=== PATIENT | male | born 1940 | race Caucasian/White ===

== ENCOUNTER 2017-09-11 03:17 | Inpatient (IN) | payer OTHER ==
[~2017-09-11] VITALS: Ht 168 cm; Wt 61.2 kg
[2017-09-11] VITALS (53 sets, daily range): BP systolic 86–142; BP diastolic 28–78
--- NOTE | ~2017-09-11 | PR ---
[place], [place] PROGRESS NOTE NAME: NATO FORD UNIT #: [id number] ROOM: 401 DOCTOR: LORELEI THURSTON MD,NIDHI BIRTHDATE: [birth year] DOS: 09/16/2017 SUBJECTIVE: He has been noted comfortable. The chest tube was removed yesterday successfully without difficulty. Coughing has been noted with gradual reduction in the frequency and intensity. There was no sputum expectoration. The patient denies symptoms of chest pain or hemoptysis. OBJECTIVE: VITAL SIGNS: Normal temperature, respiratory rate 20, heart rate 75, blood pressure 90-75, pulse ox saturation with 3 liters nasal cannula 94% saturation. HEENT: No acute change. NECK: Supple. CARDIOVASCULAR: S1, S2 audible. LUNGS: Mild to moderate decreased breath sounds noted on the right side. The left lung was noted clear of any wheezing or crackles. ABDOMEN: Soft, nontender. EXTREMITIES: The patient noted without any acute edema. LABORATORY DATA: Chest x-ray of the patient does not show any evidence of pneumothorax. On the left side, the chest tube was already removed. Emphysematous changes noted improvement in aeration, ____ right side with some pleural thickening still noted. PLAN OF MANAGEMENT: Continuation of the bronchodilators, oxygen supplementation and the medical management of COPD as well. The patient has been showing progressive improvement and resolution of acute symptoms. Antibiotic for the patient at this time will be changed to lower spectrum antibiotic based on the recent culture results of the sputum. The vancomycin and Zosyn will be discontinued. Levaquin will be continued with primary antibiotics. Possible discharge home consideration in the morning as well. Assessment for home oxygen might be needed as well. NIDHI MOSELEY MD CM:PNTRANS [id number] NIDHI THURSTON MD 09/17/17814 interface
--- NOTE | ~2017-09-11 | PR ---
[place], [place] PROGRESS NOTE NAME: NATO FORD UNIT #: [id number] ROOM: 401 DOCTOR: LORELEI THURSTON MD,NIDHI BIRTHDATE: [birth year] DOS: 09/15/2017 SUBJECTIVE: The patient noted comfortable at this time, resting on the bed. Coughing has been noted decreased as described by the patient in the last 24 hours. He denies symptoms of chest pain. The patient has a chest tube remains clamped without any respiratory difficulty. He has not been noted and symptoms of nausea, vomiting, diarrhea or any abdominal pain. The patient denies any symptoms of hemoptysis or any chest pain at this time. His appetite was noted fair. Denies symptoms of headache or diplopia. Remaining systems were reviewed. They were noted all negative. OBJECTIVE: VITAL SIGNS: Normal temperature, respiratory rate 18, heart rate 73, blood pressure 130/57-126/74. The pulse oxygen saturation on 2 liters nasal cannula 100% saturation. HEENT: Examination shows head was atraumatic. Eyes nonicterus. NECK: Supple. CARDIOVASCULAR: S1, S2 is audible. LUNGS: The patient was noted without any wheezing or crackles at the present time. Breath sounds still noted decreased on the right chest auscultation. The left lung was clear. ABDOMEN: Soft, nontender. Bowel sounds present. EXTREMITIES: Noted without any acute edema. MUSCULOSKELETAL: Without any acute deformities. LABORATORY DATA: Urine for strep antigen for the patient and the legionella antigen both noted negative. CBC this morning, hemoglobin 8.5 and 27.7, WBC count normal, platelet count were normal. The chest x-ray of the patient that was done this morning, was reviewed shows chest tube remains in place. Apparent reduction and improvement in the aeration of the right infiltrates were noted. IMPRESSION: Pneumothorax. The patient has been noted with minimal pneumothorax after a couple of days in the left upper lobe. The chest tube has been removed today for the patient with the use of the Vaseline gauze applied to tight dressing for patient at the site. Continue the antibiotics, bronchodilators, and oxygen supplementation. Another chest x-ray to be repeated PA lateral view in the morning. Gradual reduction of the Solu-Medrol dose will be done. Other supportive therapy, plan of management and care plan. Monitor respiratory status otherwise closely. Usual care. [place], [place] PROGRESS NOTE NAME: NATO FORD UNIT #: [id number] ROOM: 401 DOCTOR: LORELEI THURSTON MD,NIDHI BIRTHDATE: [birth year] NIDHI MOSELEY MD CM:PNTRANS [id number] NIDHI THURSTON MD 09/16/172205 interface
--- NOTE | ~2017-09-11 | PR ---
[place], [place] PROGRESS NOTE NAME: NATO FORD UNIT #: [id number] ROOM: 401 DOCTOR: ELIO SAINZ MD BIRTHDATE: [birth year] DOS: SUBJECTIVE: The patient has been admitted to the hospital with spontaneous pneumothorax, has chest pain ____ in by Dr. Tracey. The patient is progressing quite satisfactory, but slowly. He is not in any distress. He is stable. OBJECTIVE: VITAL SIGNS: His blood pressure is 127/70, pulse oximetry is 98%, pulse is 87, his tongue is not coated. He is taking enough fluid. HEART: Regular, no murmur. LUNGS: Having some decreased breath sound, but there are no crepitations. ABDOMEN: Soft. EXTREMITIES: There is no swelling of legs. No tenderness of the calf. His prealbumin shows having hypoalbuminemia. Sputum culture and sensitivity grew normal speedy. His blood pressure is 128/73 and sepsis is under control. His tachycardia is under control, tachypnea is under control. ELIO SAINZ MD CM:PNTRANS [id number] ELIO SAINZ MD 09/14/17 0412 interface
--- NOTE | ~2017-09-11 | PR ---
[place], [place] PROGRESS NOTE NAME: NATO FORD UNIT #: [id number] ROOM: 401 DOCTOR: LORELEI THURSTON MD,NIDHI BIRTHDATE: [birth year] DOS: 09/13/2017 SUBJECTIVE: The patient is noted quite comfortable at this time, resting on the bed for this patient. Chest tube remains in place. The patient placed to suction on the left side. The coughing has been noted chest congestion without any sputum expectoration, which was significant. Denies symptoms of hemoptysis or chest pain. The patient denies symptoms of active wheezing. His appetite was noted fair. Denies any symptoms of abdominal pain, nausea, vomiting. Denies any symptoms of dysuria, suprapubic pain or musculoskeletal pain, headache or dizziness. Remaining systems were reviewed. They were noted all negative. PHYSICAL EXAMINATION: VITAL SIGNS: Normal temperature, respiratory rate 18, heart rate 69, blood pressure 120/65, pulse oxygen saturation on 2 liters nasal cannula 100% saturation recorded. HEENT: No acute change. NECK: Supple. CARDIOVASCULAR: S1, S2 is audible. LUNGS: Noted with expiratory wheezing in the lungs noted bilaterally, greater on the right than the left side. There were no crackles. ABDOMEN: Soft, nontender. EXTREMITIES: Without any acute edema. MUSCULOSKELETAL: Without any acute deformities except chronic loss of muscle mass. SKIN: No lesions or rashes. CENTRAL NERVOUS SYSTEM: Intact. LABORATORY DATA: Prealbumin noted as 14.0. The blood culture showed no bacterial growth for this patient on 09/11/2017. The chest x-ray was noted with a lung remained expanded on the left side. Chest tube remains in appropriate position in the left hemithorax. Right lung was noted improvement in the aeration, but still noted with significant information rather abnormalities in the lung with infiltration, pleural thickening and others. IMPRESSION: 1. The patient was noted spontaneous pneumothorax, left side, chest tube remains in place without any evidence of air leak. 2. The patient with acute pneumonia. 3. Rule out malignancy right hemithorax. 4. Past history of prostate cancer. 5. Hrpjtbrf-im-yzletj protein calorie malnutrition as well. 6. Overall severe debility. 7. Acute exacerbation of chronic obstructive pulmonary disease. PLAN OF THERAPY: The patient would be transferred to the telemetry floor at this time. Dose of Solu-Medrol has been decreased to 60 mg Solu-Medrol b.i.d. dosing. Other supportive plan of therapy and care plan. Additional treatment changes, continue be made based on progression of the illness. For the [place], [place] PROGRESS NOTE NAME: NATO FORD UNIT #: [id number] ROOM: 401 DOCTOR: LORELEI THURSTON MD,NIDHI BIRTHDATE: [birth year] pneumothorax. Chest tube has been clamped for patient at the bedside today, that will remain clamped for the next 24 hours. Chest x-ray will be done for this patient tomorrow morning to reassess. If the patient developed any evidence of hypotension, respiratory distress, or hypoxia. The patient's chest tube clamped to be open up to the Pleur-evac suction. The information has been discussed with the nursing staff. Other supportive therapy, plan of management and care plan. Additional treatment changes, continue to be made based on the progression of the illness. Optimize the nutritional status for the patient for the Protein calorie malnutrition. NIDHI MOSELEY MD CM:PNTRANS [phone] NIDHI THURSTON MD 09/13/172031 interface
--- NOTE | ~2017-09-11 | CON ---
[place], [place] REPORT OF CONSULTATION NAME: NATO FORD UNIT #: [id number] ROOM: [facility] DOCTOR: NIDHI FERRIS MD BIRTHDATE: [birth year] DOS: 09/11/2017 PULMONARY CONSULTATION, EVALUATION AND MANAGEMENT REASON FOR CONSULTATION: Assess the patient's current pneumothorax, acute pneumonia, and other respiratory symptoms. HISTORY OF PRESENT ILLNESS: This is a 77-year-old white male who presented to the hospital this morning as the patient has been noted with significant shortness of breath, which has been noted progressively worsening. The patient has been noted with symptoms of coughing, chest congestion recently as well, which was also described worsening. He has been expectorating "dark sputum." There was no hemoptysis reported. The patient also noted with symptoms of pain, which is described in the chest. The patient has not been known with any symptoms reported for wheezing. The patient has a chest x-ray, which was obtained on this patient for assessment of current symptoms. The patient noted with acute large pneumothorax in the left side. The patient has a chest tube inserted successfully by the ER physician resulting in reexpansion of the lung. The patient was seen during his stay in the Emergency Room. REVIEW OF SYSTEMS: CONSTITUTIONAL SYMPTOMS: Fatigue and tiredness reported without any fever or chills. EYES: Denies any burning, redness, tenderness, or diplopia. EARS, NOSE, AND THROAT SYMPTOMS: Denies sore throat, hoarseness, or otalgia. The patient noted mild senile hearing loss. CARDIOVASCULAR: Denies angina pain, edema, or pain of lower extremities. GASTROINTESTINAL: No dysphagia, nausea, vomiting, diarrhea, abdominal pain, hematemesis, melena, hematochezia, or dysphagia. GENITOURINARY: No dysuria, suprapubic pain, or hematuria. MUSCULOSKELETAL: No acute joint pain, redness, or tenderness described. CENTRAL NERVOUS SYSTEM: General weakness. Denies symptoms of dizziness, headache, syncopal episode, or seizures. Remaining systems were reviewed of the patient, they were noted all negative. PAST MEDICAL HISTORY: 1. Known with history of chronic obstructive pulmonary disease. 2. Prostate cancer, treated with brachytherapy. 3. Essential hypertension. 4. Skin cancer. PAST SURGICAL HISTORY: No major surgery reported. SOCIAL HISTORY: The patient reported , has 2 children. He has been noted with heavy tobacco use, started at the age of 13-14 years old up to 3 packs of cigarettes a day. Complete tobacco cessation was described in 1998. FAMILY HISTORY: Unknown by the patient. [place], [place] REPORT OF CONSULTATION NAME: NATO FORD UNIT #: [id number] ROOM: [facility] DOCTOR: LORELEI THURSTON MD,NIDHI BIRTHDATE: [birth year] MEDICATIONS: Home medications list reported as use of Norvasc, Lipitor, azathioprine, Advair, lisinopril, hydrochlorothiazide, and metoprolol succinate. The reason for use of azathioprine for the patient was unknown. DRUG ALLERGIES: No known drug allergies. PHYSICAL EXAMINATION: GENERAL: This is a 77-year-old male patient who has been currently resting comfortably on the bed in the Emergency Room. VITAL SIGNS: Height of 5 feet 6 inches, weight 131 pounds, BMI 21.6. VITAL SIGNS: Normal temperature to 99 degree Fahrenheit, respiratory rate recorded between 18 and 19, heart rate of 115, sinus tachycardia, 106 beats per minute, still noted, blood pressure of the patient was noted as 121/61-98/69. Pulse oxygen saturation of the patient recorded on 100% nonrebreather mask was 91% saturation. HEENT: Head was atraumatic. Eyes nonicterus. Mild senile hearing loss. NECK: Supple. CARDIOVASCULAR: S1, S2 audible. LUNGS: Noted with moderate general reduction in the breath sounds in the lungs bilaterally. Wheezing was noted in the lungs. ABDOMEN: Soft, nontender, and flat. EXTREMITIES: Without any acute edema. MUSCULOSKELETAL: Shows loss of muscle mass. CENTRAL NERVOUS SYSTEM: No gross focal neurologic deficit. Cranial nerves 2-12 intact. LABORATORY DATA: Lactic acid 2.7 on admission. PT/PTT noted normal fir the patient this morning. CMP this morning, BUN 58, creatinine 1.77, glucose 154, potassium 6.0. Troponin 0.27. CBC of the patient this morning, WBC count ____, hemoglobin 9.9, hematocrit 31.3, platelet count 268,000. The troponin for the patient, second set 0.261. IMAGING STUDIES: Review of the radiology data for this The chest x-ray of the patient that was done on admission was reviewed, shows evidence of large left-sided pneumothorax with blunting of the right costophrenic angle. Changes of severe COPD were noted. The chest x-ray of the patient that was done after insertion of the chest tube was noted with resolution of the pneumothorax with small remaining atelectasis. The infiltrate was noted more pronounced for this patient in the right lung at this time. CT scan of the chest of the patient was also reviewed and shows evidence of a mass lesion noted as 4.4 x 1.5 cm in the left upper lung, pleural thickening noted area 4 x 8 cm in the right upper lobe as well. Another nodule for the patient was noted with some pleural thickening for the patient, which appeared to be nodular in the right middle lobe. Pneumothorax was visible on the chest x-ray. Evidence of granulomas was also noted in the lungs. IMPRESSION: 1. The patient will be currently admitted to the hospital with spontaneous pneumothorax with severe advanced emphysema, which was also visible on the CT scan of the chest with the reinsertion of chest tube for this patient does not [place], [place] REPORT OF CONSULTATION NAME: NATO FORD UNIT #: [id number] ROOM: [facility] DOCTOR: LORELEI THURSTON [facility] BIRTHDATE: [birth year] show any air leak, good reexpansion of the lung noted. 2. Severe acute hypoxic respiratory failure as a result of current acute pneumothorax. 3. Possibility of multifocal pneumonia will be considered, rule out malignancy in the patient with current pleural thickening as well. 4. Past history of cancer of the prostate, known as well, treated with brachytherapy. 5. The patient has anemia of chronic disease as well with a low-grade leukocytosis. 6. The patient with abnormal troponin, rule out acute myocardial infarction. 7. Mild hypotension noted, which is in remission, most likely multifactorial. 8. The patient with a history of past tobacco use. 9. The patient with acute exacerbation of chronic obstructive pulmonary disease was also noted. 10. The patient with acute sepsis with acute end-organ injury with acute respiratory failure as well as acute kidney injury would be considered. PLAN OF MANAGEMENT: The patient will be transferred to the Intensive Care Unit for further medical management. Chest tube will be continued for suction. Continue corticosteroids, bronchodilators, oxygen supplementation. Treat the patient at this time for the acute pneumonia management and also assess the patient for any additional intervention that needs to be done as an outpatient. Chest x-ray portable will be obtained in the morning. Monitor the hemodynamics. Cardiology consultation may be needed. The patient was also noted with acute change with elevation of creatinine, most likely related to acute sepsis because of the acute pneumonia would be considered very likely to be monitored. DVT prophylaxis. Other supportive therapy, plan and management. If the patient does develop additional hypotension, the patient will require intravenous fluid volume initial resuscitation followed by the use of vasopressors if necessary to maintain mean arterial pressure of 65 or greater. The assessment and management of the patient was also discussed with the patient's son who was present at bedside with the patient. Total time spent in the patient's pulmonary critical care evaluation and management today is 32 minutes. NIDHI MOSELEY MD CM:CONSTR:REPORT OF CONSULTATION 1631 09/12/17 0507 interface
--- NOTE | ~2017-09-11 | PR ---
[place], [place] PROGRESS NOTE NAME: NATO FORD UNIT #: [id number] ROOM: [facility] DOCTOR: LORELEI THURSTON MD,NIDHI BIRTHDATE: [birth year] DOS: 09/12/2017 SUBJECTIVE: The patient was admitted to the Intensive Care Unit yesterday. He has been noted with reduction in the respiratory symptom. Coughing has been noted moderate without any sputum expectoration. He has a chest tube remains in place in left hemithorax. Denies any symptoms of hemoptysis. He had not been noted any edema or pain of lower extremity. Appetite was noted fair. Chest tube was continued ____ the suction. He denies symptoms of nausea, vomiting or diarrhea. Remaining systems were reviewed of the patient, they were noted all negative. OBJECTIVE: VITAL SIGNS: Show normal temperature, respiratory rate 28-14, heart rate of 99-86, blood pressure 123/74-133/76. The pulse oxygen saturation of the patient 2 liters nasal cannula 98% saturation recorded. HEENT: Examination shows head was atraumatic. Eyes nonicterus. NECK: Supple. CARDIOVASCULAR: S1, S2 is audible. LUNGS: Noted generally decreased breath sounds of the patient in the lungs noted bilaterally. Scattered expiratory wheezing, no crackles. ABDOMEN: Soft, nontender, flat. EXTREMITIES: Without any acute edema. MUSCULOSKELETAL: No deformities. SKIN: Noted without any lesions or rashes. LABORATORY DATA: The chest x-ray of the patient that was done this morning for the patient was reviewed, shows left lung remains fully expanded on the left side. Hyperinflation of the lung was noted. Evidence of pleural thickening of the patient and multiple abnormalities were noted on the right side. The film was also noted with poorly positioned for this patient and rotated mostly towards the right, which is exaggerating the abnormal finding on the right side as well. The culture of the sputum was pending. Gram stain noted suboptimal specimen of the lower airways. CBC today, WBC count 11.6, hemoglobin 8.3, hematocrit 26.3, platelet count 185,000 with 100% neutrophils. CMP of the patient that was done this morning, BUN 47, creatinine 1.59, glucose 124. Potassium was 5.2. IMPRESSION: 1. The patient who has been currently admitted to the hospital was noted with acute spontaneous pneumothorax with acute hypoxic respiratory failure. 2. Resolving acute changes. 3. Multilobar pneumonia. 4. Rule out malignancy in the right hemithorax as well. 5. Past history of prostate cancer. 6. Overall severe debility of the patient with apparent protein calorie malnutrition. PLAN OF MANAGEMENT: The patient's chest tube does not show any air leak at this time, will be continued with suction for the next 24 hours. Once reviewing the [place], [place] PROGRESS NOTE NAME: NATO FORD UNIT #: [id number] ROOM: [facility] DOCTOR: LORELEI THURSTON MD,NIDHI BIRTHDATE: [birth year] chest x-ray tomorrow for this patient, the clamping of the chest tube will be done. In the meantime, continue antibiotics. Bronchodilators. Obtain the prealbumin level as well for this patient to assess the nutritional status with nutrition supplements could be given. Titrate oxygen supplementation to maintain pulse oxygen saturation of 92% or greater. Usual care. Other supportive therapy, plan of management and care plan. Additional treatment changes will be made for the patient based on the progression of the illness. NIDHI MOSELEY MD CM:CORA [phone] NIDHI THURSTON MD 09/13/17 0151 interface
--- NOTE | ~2017-09-11 | PR ---
[place], [place] PROGRESS NOTE NAME: NATO FORD UNIT #: [id number] ROOM: 401 DOCTOR: NIDHI FERRIS MD BIRTHDATE: [birth year] DOS: 09/17/2017 PULMONARY PROGRESS NOTE SUBJECTIVE: The patient noted comfortable at this time, resting in the bed. Coughing continues to resolve, progressive. Symptoms of chest pain, shortness breath was improving. The patient denies symptoms of hemoptysis. OBJECTIVE: VITAL SIGNS: Recorded normal temperature, respiratory rate 20, heart rate 84, blood pressure of 132/60. Pulse oxygen saturation on 2 liters nasal cannula 100% saturation recorded. HEENT: Examination shows head was atraumatic. Eyes nonicterus. NECK: Supple. CARDIOVASCULAR: S1, S2 is audible. LUNGS: Noted without any wheezing or crackles at the present time. ABDOMEN: Soft, nontender. EXTREMITIES: Without any acute edema. LABORATORY DATA: CBC: Hemoglobin 8.9. Normal WBC count and platelet count. The BMP, BUN 29, creatinine normal. IMPRESSION: 1. Resolution of spontaneous pneumothorax, removed chest tube a couple of days ago successfully without any difficulty. 2. The patient with improved acute hypercapnic hypoxic respiratory failure, exacerbation of chronic obstructive pulmonary disease, markedly. 3. Acute pneumonia. 4. Pleural thickening, rule out any pleural based lung masses as well. PLAN OF MANAGEMENT: Continuation of the current therapy at this time. Discharge planning could be started for possible discharge home today. Follow up to be established as an outpatient, exclude any malignancy in the right hemithorax. [place], [place] PROGRESS NOTE NAME: NATO FORD UNIT #: [id number] ROOM: 401 DOCTOR: NIDHI FERRIS MD BIRTHDATE: [birth year] NIDHI MOSELEY MD CM:PNTRANS [phone] NIDHI THURSTNO MD 09/18/17 0340 interface
--- NOTE | ~2017-09-11 | PR ---
[place], [place] PROGRESS NOTE NAME: NATO FORD UNIT #: [id number] ROOM: 401 DOCTOR: NIDHI FERRIS MD BIRTHDATE: [birth year] DOS: 09/14/2017 SUBJECTIVE: Chest tube remains clamped for the last 24 hours without any respiratory problem. The patient currently staying in the telemetry floor after transfer from Intensive Care Unit. Coughing has been noted moderately without any sputum expectoration. Denies symptoms of abdominal pain, nausea, vomiting, and diarrhea. OBJECTIVE: VITAL SIGNS: For the patient which has been recorded shows normal temperature, respiratory rate 20, heart rate 80, and blood pressure 114/77-110/77. Pulse oxygen saturation on 2 liters nasal cannula 95% saturation. HEENT: No acute change. NECK: Supple. CARDIOVASCULAR: S1 and S2 is audible. LUNGS: The patient was noted without any crackle, rhonchi or wheezing on the left side. Decreased breath sounds in the right chest. ABDOMEN: Soft and nontender. EXTREMITIES: Without any acute edema. RADIOLOGIC DATA: Chest x-ray of the patient that was done one-view reviewed personally for the patient from the PACS images shows evidence of somewhat right lung volume loss was noted with pleural thickening and superimposed pulmonary infiltration. Left lung remains fully expanded and chest tube in place. IMPRESSION: 1. The patient without any evidence of air leak with spontaneous pneumothorax, Chest tube has been clamped for 24 hours without any adverse findings. 2. Acute pneumonia. 3. Rule out malignancy in the right hemithorax. PLAN OF MANAGEMENT: Continue chest tube clamping for another 24 hours. The chest tube might be removed tomorrow morning after assessment of chest x-ray. Continue antibiotic, other therapy, plan and management previously. Usual care. Supportive plan of care and treatments. [place], [place] PROGRESS NOTE NAME: NATO FORD UNIT #: [id number] ROOM: 401 DOCTOR: NIDHI FERRIS MD BIRTHDATE: [birth year] NIDHI MOSELEY MD CM:PNTRANS [id number] NIDHI THURSTON MD 09/15/17 0719 interface
--- NOTE | ~2017-09-11 | PR ---
[place], [place] PROGRESS NOTE NAME: NATO FORD UNIT #: [id number] ROOM: 401 DOCTOR: ELIO SAINZ MD BIRTHDATE: [birth year] DOS: 09/14/2017 SUBJECTIVE: The patient who has been admitted to hospital with the spontaneous pneumothorax and had chest tube put in and is progressively getting better. He denies any chest pain, no difficulty in breathing, no nausea, no vomiting, no fever or chills. He is eating satisfactorily and the chest tube is working quite satisfactorily. His vancomycin level 11.9. The patient's ASA MRSA is positive and his blood culture is negative. OBJECTIVE: VITAL SIGNS: Blood pressure 110/77, pulse 82, respirations 20, temperature 97.1. CHEST: Having occasional rhonchi and no crepitation. Decreased breath sounds on the left side. ABDOMEN: Soft. Liver and spleen not palpated. No tenderness. EXTREMITIES: No edema of leg. ELIO SAINZ MD CM:PNTRANS [id number] ELIO SAINZ MD 09/16/17 1327 interface
--- NOTE | ~2017-09-11 | PR ---
[place], [place] PROGRESS NOTE NAME: NATO FORD UNIT #: [id number] ROOM: 401 DOCTOR: GERMAINE DAWN MD BIRTHDATE: [birth year] DOS: 09/15/2017 SUBJECTIVE: The patient was seen at his bedside with family in attendance today 09/15/2017. He is a 77-year-old man who presented to the hospital on this occasion with worsening dyspnea. He was found to have a tension pneumothorax which required tube thoracostomy. The chest tube was removed today. The patient is breathing easily and states that he is about at his baseline. On admission, he did have elevated troponins. Troponin levels were all in the 0.25-0.27 range and were elevated most likely due to demand ischemia rather than an acute coronary event. The patient denies any history of heart disease or chest pain at this time. PHYSICAL EXAMINATION: VITAL SIGNS: Today, his pulse is 85 and regular, blood pressure is 122/58. He is afebrile. He weighs 61.2 kg and has a body mass index of 21.7. NECK: Supple. He has no jugular distention. Carotids are full. LUNGS: Respirations are unlabored at rest. He has markedly decreased breath sounds bilaterally. HEART: Has a regular rhythm with an S4 gallop, but no S3 or murmur. ABDOMEN: Soft. EXTREMITIES: Showed no edema. He did have an echocardiogram done on this admission, which showed normal left ventricular size, systolic function and wall motion with an ejection fraction of 65%. No significant valve abnormalities are seen. Right ventricular systolic pressure 60 mmHg consistent with his lung disease. IMPRESSION: 1. Acute respiratory failure due to pneumothorax and pneumonia, improving. 2. Chronic obstructive pulmonary disease. 3. Elevated troponins due to type 2 myocardial injury. 4. Normal left ventricular size and function. The patient denies any history of heart disease. 5. Moderate tricuspid insufficiency with Doppler evidence for pulmonary hypertension, likely due to underlying lung disease. 6. Chronic kidney disease stage 3 with acute kidney injury due to dehydration. 7. The patient currently is euvolemic. 8. History of abdominal aortic aneurysm repaired with a stent graft. PLAN: No other cardiac workup is planned at this time. We will sign off, but remain available to assist in his care should we be of use. I thank Dr. Hart for asking our advice regarding his care. [place], [place] PROGRESS NOTE NAME: NATO FORD UNIT #: [id number] ROOM: 401 DOCTOR: GERMAINE DAWN MD BIRTHDATE: [birth year] GERMAINE DAWN MD CM:PNTRANS [phone] GERMAINE DAWN MD 09/15/172032 interface
--- NOTE | ~2017-09-11 | PR ---
[place], [place] PROGRESS NOTE NAME: NATO FORD UNIT #: [id number] ROOM: 401 DOCTOR: CHACHA PARKER MD BIRTHDATE: [birth year] DOS: 09/15/2017 SUBJECTIVE: The patient is doing well. He has a pneumothorax and pneumonia and his Streptococcus pneumoniae and legionella antigen have been negative. The patient does not have chest tube anymore. It was taken out in the morning by Dr. Tracey. His chest x-ray was done today, which showed a stable left thoracotomy tube in the morning. No evidence of residual pneumothorax. The patient is doing well. He is much better. No apparent shortness of breath or chest pain. No nausea or vomiting. OBJECTIVE: VITAL SIGNS: Blood pressure 130/57, pulse is 73, respiratory 18, temperature 98 degrees Fahrenheit. CHEST: Clinically decreased breath sounds bilaterally. HEART: S1 and S2, regular rate and no murmur, gallop or rub. ABDOMEN: Soft, nontender. EXTREMITIES: No edema. LABORATORY DATA: Today, WBC count is 6.7, hemoglobin is 8.5, MCV 109.1 and platelets 194. He has atypical lymphocytes seen. The patient does have left shift. BUN is 35, creatinine 1.29. EGFR is 54. ASSESSMENT: At this time: 1. Acute community-acquired pneumonia. 2. Pneumothorax, status post chest tube placement, which has been removed now. 3. Rule out malignancy as noted in the right hemithorax as per Dr. Tracey. PLAN OF CARE: 1. We will continue antibiotics. 2. Chest x-ray in the morning. 3. Anemia workup, we will check total iron studies. We will follow the patient. 4. For hypertension, we will continue lisinopril and hydrochlorothiazide and continue Zosyn, Levaquin and vancomycin at this point. We will follow the patient in the morning. [place], [place] PROGRESS NOTE NAME: NATO FORD UNIT #: [id number] ROOM: 401 DOCTOR: CHACHA PARKER MD BIRTHDATE: [birth year] CHACHA PARKER MD CM:PNTRANS [id number] CHACHA PARKER MD 09/15/17 1255 interface
[~2017-09-11 03:17] MED LIST: AMLODIPINE5 MG PO; ASPIRIN ADULT L81 M1 PO; AZATHIOPRINE50 MG PO; COMBIVENT1 ARO INH; FOLIC ACID0.4 MG PO; LIPITOR20 MG PO; LISINOPRIL40 MG PO; MAPAP ARTHRITI650 MG PO; TOPROL XL25 MG PO
[2017-09-11 03:44] LABS: HEMATOCRIT 31.3 % (42.0-52.0); HEMOGLOBIN 9.9 g/dl (14.0-18.0); MEAN CELL VOLUME 106.5 fl (80.0-94.0); MEAN CORPUSCULAR HGB 33.7 pg (27.0-31.0); MEAN CORPUSCULAR HGB CONC 31.6 g/dl (33.0-37.0); MEAN PLATELET VOLUME 10.3 fl (9.6-12.3); NUCLEATED RED BLOOD CELL 0.1 % (0.0-0.0); PLATELET COUNT AUTOMATED 268 10*3/uL (130-400); RED BLOOD COUNT 2.94 10*6/uL (4.50-5.90); WHITE BLOOD COUNT 22.4 10*3/uL (4.8-10.8)
[2017-09-11 03:56] LABS: ACT PARTIAL THROMBO TIME 28.2 SECONDS (20.8-31.5); INTERNATIONAL NORM RATIO 1.1 (2.0-3.5)
[2017-09-11 04:02] LABS: ALBUMIN 2.8 gm/dl (3.1-4.5); CREATININE 1.77 mg/dL (0.70-1.30); TOTAL PROTEIN 8.8 gm/dL (6.4-8.2)
[2017-09-11 04:04] LABS: TOTAL CELLS COUNTED 100 #CELLS
[2017-09-11 04:05] LABS: PLATELET SUFFICIENCY NORMAL (NORMAL)
[2017-09-11 04:08] LABS: TROPONIN I 0.27 ng/ml (<0.045)
[2017-09-11] MEDS ORDERED: ZESTORETIC 10-1 EACH PO (11:29)
[2017-09-11] MEDS ORDERED: ADVAIR 250/501 EA PO (11:31)
[2017-09-11 14:08] LABS: PHOSPHOROUS 2.9 mg/dL (2.5-4.9)
[2017-09-12] VITALS: BP 124/61
[2017-09-12 04:00] VITALS: BP 125/65
[2017-09-12 06:34] LABS: ALBUMIN 2.1 gm/dl (3.1-4.5); CREATININE 1.59 mg/dL (0.70-1.30); POTASSIUM 5.2 mmol/L (3.5-5.1)
[2017-09-12 06:41] LABS: PHOSPHOROUS 4.2 mg/dL (2.5-4.9); THYROID STIM HORMONE (HS) 0.407 uIU/ml (0.358-4.75); TOTAL PROTEIN 6.6 gm/dL (6.4-8.2)
[2017-09-12 07:22] LABS: HEMATOCRIT 26.3 % (42.0-52.0); HEMOGLOBIN 8.3 g/dl (14.0-18.0); MEAN CELL VOLUME 107.8 fl (80.0-94.0); MEAN CORPUSCULAR HGB CONC 31.6 g/dl (33.0-37.0); MEAN PLATELET VOLUME 11.1 fl (9.6-12.3); NUCLEATED RED BLOOD CELL 0.2 % (0.0-0.0); RED BLOOD COUNT 2.44 10*6/uL (4.50-5.90); RED CELL DISTRI WIDTH 16.4 % (0-14.5); WHITE BLOOD COUNT 11.6 10*3/uL (4.8-10.8)
[2017-09-12 07:23] LABS: PLATELET COUNT AUTOMATED 185 10*3/uL (130-400)
[2017-09-12 08:16] LABS: PLATELET SUFFICIENCY NORMAL (NORMAL); POLYCHROMASIA SLIGHT; TOTAL CELLS COUNTED 100 #CELLS
[2017-09-12 08:49] LABS: VITAMIN D, 25-HYDROXY 21.4 ng/mL (30-100)
[2017-09-12 09:00] VITALS: BP 123/74
[2017-09-12 12:00] VITALS: BP 121/65
[2017-09-12 16:00] VITALS: BP 122/65
[2017-09-12 20:00] VITALS: BP 122/65
[2017-09-13] VITALS: BP 119/72
[2017-09-13 04:00] VITALS: BP 128/73
[2017-09-13 08:00] VITALS: BP 121/74
[2017-09-13 12:00] VITALS: BP 120/65
[2017-09-13 16:53] VITALS: BP 115/65; BP 125/63
[2017-09-13 20:01] VITALS: BP 104/53
[2017-09-14] VITALS: BP 110/77
[2017-09-14 08:00] VITALS: BP 114/77
[2017-09-14 12:00] VITALS: BP 115/51
[2017-09-14 16:00] VITALS: BP 144/80
[2017-09-14 20:00] VITALS: BP 122/61
[2017-09-15] VITALS: BP 105/56
[2017-09-15 07:28] LABS: HEMATOCRIT 27.7 % (42.0-52.0); HEMOGLOBIN 8.5 g/dl (14.0-18.0); MEAN CELL VOLUME 109.1 fl (80.0-94.0); MEAN CORPUSCULAR HGB 33.5 pg (27.0-31.0); MEAN CORPUSCULAR HGB CONC 30.7 g/dl (33.0-37.0); MEAN PLATELET VOLUME 10.4 fl (9.6-12.3); PLATELET COUNT AUTOMATED 194 10*3/uL (130-400); RED BLOOD COUNT 2.54 10*6/uL (4.50-5.90); RED CELL DISTRI WIDTH 15.9 % (0-14.5); WHITE BLOOD COUNT 6.7 10*3/uL (4.8-10.8)
[2017-09-15 07:47] LABS: ATYPICAL LYMPHS 1 % (0-0); PLATELET SUFFICIENCY NORMAL (NORMAL); POLYCHROMASIA SLIGHT; TOTAL CELLS COUNTED 100 #CELLS
[2017-09-15 07:51] LABS: BUN 35 mg/dl (7-24); CREATININE 1.29 mg/dL (0.70-1.30)
[2017-09-15 08:00] VITALS: BP 126/74
[2017-09-15 12:00] VITALS: BP 130/57
[2017-09-15 16:00] VITALS: BP 122/58
[2017-09-15 20:00] VITALS: BP 102/60
[2017-09-16] VITALS: BP 129/80
[2017-09-16 08:00] VITALS: BP 125/68
[2017-09-16 12:00] VITALS: BP 119/75
[2017-09-16 16:00] VITALS: BP 98/56
[2017-09-16 20:00] VITALS: BP 95/55
[2017-09-17] VITALS: BP 119/70
[2017-09-17 06:21] LABS: HEMATOCRIT 28.1 % (42.0-52.0); HEMOGLOBIN 8.9 g/dl (14.0-18.0); MEAN CORPUSCULAR HGB 33.1 pg (27.0-31.0); MEAN CORPUSCULAR HGB CONC 31.7 g/dl (33.0-37.0); MEAN PLATELET VOLUME 10.7 fl (9.6-12.3); NUCLEATED RED BLOOD CELL 0.3 % (0.0-0.0); PLATELET COUNT AUTOMATED 179 10*3/uL (130-400); RED BLOOD COUNT 2.69 10*6/uL (4.50-5.90); RED CELL DISTRI WIDTH 15.4 % (0-14.5); WHITE BLOOD COUNT 6.6 10*3/uL (4.8-10.8)
[2017-09-17 06:24] LABS: MEAN CELL VOLUME 104.5 fl (80.0-94.0)
[2017-09-17 06:38] LABS: ALKALINE PHOSPHATASE 73 U/L (45-117); BUN 29 mg/dl (7-24); CHLORIDE 102 mmol/L (98-107); CREATININE 1.14 mg/dL (0.70-1.30); SGOT/AST 26 IU/L (3-35); SGPT/ALT 22 U/L (12-78); SODIUM 137 mmol/L (136-145); TOTAL PROTEIN 5.8 gm/dL (6.4-8.2)
[2017-09-17 07:02] LABS: TOTAL CELLS COUNTED 100 #CELLS
[2017-09-17 07:03] LABS: PLATELET SUFFICIENCY NORMAL (NORMAL); POLYCHROMASIA SLIGHT
[2017-09-17 08:00] VITALS: BP 142/84
[2017-09-17 12:00] VITALS: BP 133/60
[2017-09-17] MEDS ORDERED: DOXYCYCLINE100 M3 PO (12:54)
[2017-09-17 13:16] LABS: IRON 64 ug/dL (65-175); TOTAL IRON BINDING CAPACITY 170 ug/dl (250-450)
[2017-09-17] MEDS ORDERED: FEROSUL325 MG PO (14:19)
[2017-09-17 16:00] VITALS: BP 89/44
== END 2017-09-17 17:57 | disposition home or self-care (01) | DRG 871 ==
LOC: ED 03:17 → 4E 05:27 → ICCU 05:27 → EDHOLD 05:27 → ICCU 09:16 → 4E 09-13 12:33
PROVIDERS: Internal Medicine; Internal Medicine Nephrology; Student in an Organized Health Care Education/Training Program
PROC: 0W9B30Z Drainage of Left Pleural Cavity with Drainage Device, Percutaneous Approach (ICD-10-PCS; principal; 2017-09-11)
DX: A41.9 Sepsis, unspecified organism (principal); J93.0 Spontaneous tension pneumothorax; E43 Unspecified severe protein-calorie malnutrition; J18.9 Pneumonia, unspecified organism; J96.02 Acute respiratory failure with hypercapnia; E88.09 Other disorders of plasma-protein metabolism, not elsewhere classified; J96.01 Acute respiratory failure with hypoxia; N17.9 Acute kidney failure, unspecified; E87.5 Hyperkalemia; I07.1 Rheumatic tricuspid insufficiency; I27.20 Pulmonary hypertension, unspecified; J44.0 Chronic obstructive pulmonary disease with (acute) lower respiratory infection; J44.1 Chronic obstructive pulmonary disease with (acute) exacerbation; N18.3 Chronic kidney disease, stage 3 (moderate); K57.90 Diverticulosis of intestine, part unspecified, without perforation or abscess without bleeding; J20.9 Acute bronchitis, unspecified; D63.8 Anemia in other chronic diseases classified elsewhere; D53.9 Nutritional anemia, unspecified; E86.0 Dehydration; C44.300 Unspecified malignant neoplasm of skin of unspecified part of face; D72.9 Disorder of white blood cells, unspecified; R65.20 Severe sepsis without septic shock; R73.9 Hyperglycemia, unspecified; R74.0 Nonspecific elevation of levels of transaminase and lactic acid dehydrogenase [LDH]; R74.8 Abnormal levels of other serum enzymes; I12.9 Hypertensive chronic kidney disease with stage 1 through stage 4 chronic kidney disease, or unspecified chronic kidney disease; Z68.21 Body mass index [BMI] 21.0-21.9, adult; Z85.46 Personal history of malignant neoplasm of prostate; Z87.891 Personal history of nicotine dependence; Z79.899 Other long term (current) drug therapy; Z79.82 Long term (current) use of aspirin

== ENCOUNTER 2017-10-12 10:14 | Inpatient (IN) | payer OTHER ==
[2017-10-12] VITALS (49 sets, daily range): BP systolic 71–215; BP diastolic 30–4792
[~2017-10-12] VITALS: Ht 182.9 cm; Wt 65.5 kg
--- NOTE | ~2017-10-12 | PR ---
[place], [place] PROGRESS NOTE NAME: NATO FORD UNIT #: [id number] ROOM: [facility] DOCTOR: SHANTEL DUARTE MD BIRTHDATE: [birth year] DOS: 10/15/2017 SUBJECTIVE: The patient remains fairly unstable. He is on high flow oxygen and is very tachypneic. He is confused and is very lethargic. He is on 40 of Anish-Synephrine and also he is on a second inotropic drug and is getting normal saline with bicarbonate at 100 mL an hour. Urine output has been excellent. PHYSICAL EXAMINATION GENERAL: This is a patient who is tired, exhausted. He is tachypneic. VITAL SIGNS: Temperature is normal, pulse is 110 and irregular, blood pressure 107/51, previous systolic blood pressure ____ 100. Fluid balance for the last 24 hours has been -1.5 liters. Intake has been rather high. NECK: JVP is normal. LUNGS: Breath sounds are barely audible and some adventitious sounds are present. EXTREMITIES: There is no edema in the lower extremities. IMPRESSION: 1. Atrial fibrillation with somewhat rapid rate, which is appropriate for this patient's illness. 2. Chronic respiratory failure due to chronic obstructive pulmonary disease. 3. Acute on chronic renal failure. 4. Hypertension. 5. The patient's urine output is tremendous. He had 9 liters of fluid in and then almost 8 liters out. Underlying reason is not clear. RECOMMENDATIONS: I think he should be given boluses of normal saline and if blood pressure creeps up, inotropic support can be tapered off. SHANTEL DUARTE MD CM:PNTRANS [phone] SHANTEL DUARTE MD 10/15/17 1846 interface
--- NOTE | ~2017-10-12 | CON ---
[place], [place] REPORT OF CONSULTATION NAME: NATO FORD UNIT #: [id number] ROOM: [facility] DOCTOR: MARLEE BARNES MD BIRTHDATE: [birth year] DOS: ATTENDING PHYSICIAN: Dr. Rayshawn Hart HISTORY OF PRESENT ILLNESS: The patient is a 77-year-old gentleman presently admitted to ICU with acute over chronic respiratory failure. The patient is very weak and lethargic and has advanced adult failure to thrive with pneumonia and sepsis along with hypotension. The patient also has acute over chronic kidney failure and non-ST segment elevation myocardial infarction. Consult was obtained for end of life discussion with the patient's family. The patient is not in a condition to be able to discuss the situation. He is lethargic and drifts in and out of sleep. SOCIAL HISTORY: The patient lives at home with the help of his son who takes care of him. Earlier on the patient was able to ambulate at home, but he is very weak and nonambulatory at the hospital with generalized weakness and muscle wasting. FAMILY HISTORY: Noncontributory. PRESENT MEDICATIONS: The patient is presently on norepinephrine and phenylephrine infusions for maintaining his blood pressure, iron, latanoprost eyedrops, Aricept, Lipitor, azathioprine, DuoNeb, ceftriaxone, vancomycin intravenously, lorazepam. ALLERGIES: No known drug allergies. PHYSICAL EXAMINATION: GENERAL: The patient barely wakes up. He is little more alert today, but unable to communicate. He seems somewhat short of breath and in respiratory discomfort and receiving oxygen at 50% by oxymizer. LUNGS: Showed decreased breath sounds and expiratory wheezing. HEENT AND NECK: Extraocular movements are intact. Sclerae are anicteric. Oral mucosa is moist and clean. No obvious facial weakness. Neck is supple without any lymphadenopathy. No thyromegaly. No JVD. No carotid arterial bruits. LUNGS: Clear to auscultation. No wheezing. No rhonchi. CARDIOVASCULAR SYSTEM: Heart rate is regular in rate and rhythm. S1 and S2 normally audible. No significant murmur or any other abnormal cardiac sounds. ABDOMEN: Soft, nontender. No obvious organomegaly. Bowel sounds are present. No obvious herniation. EXTREMITIES: Without significant cyanosis or edema. Warm to touch. CENTRAL NERVOUS SYSTEM: Alert and oriented x 3. Cranial nerves II-XII are intact. Speech is normal. The patient is able to move all extremities. ____. Plantars were downgoing. MUSCULOSKELETAL: He has severe muscle wasting all over. LABORATORY DATA: The patient's latest chest x-ray is showing extensive fibrosis and hilar retraction, right lower lobe pneumonic infiltrates and a lung mass cannot be ruled out. Blood cultures are positive for gram-positive cocci in pairs and positive for Streptococcus pneumoniae. Leukocytosis with white cell [place], [place] REPORT OF CONSULTATION NAME: NATO FORD UNIT #: [id number] ROOM: [facility] DOCTOR: MARLEE BARNES MD BIRTHDATE: [birth year] count 24,500, hemoglobin 8.8. BUN and creatinine 98 and 5. Stage 5 acute kidney failure. IMPRESSION AND PLAN: 1. The patient with recurrent admissions to the hospital, this time for sepsis and pneumonia along with acute kidney failure. The patient also has severe protein calorie malnutrition and very poor prognosis. The patient's son who has the medical power of supervisor cutting and boning has already decided against mechanical ventilation for the patient. Dr. Rayshawn Hart, patient's primary care physician is appropriately recommending end of life care with possible hospital inpatient hospice consult. 2. Acute over chronic respiratory failure and pneumonia, being treated with antibiotics. Dr. Tracey, the exchange clerk is following. 3. Sepsis with hypotension, treated with pressors and antibiotics. The patient remains critical and in ICU with entrance guard and exchange clerk on consult. 4. Altered mental status related to generalized weakness and failure to thrive and delirium. The patient is quite lethargic. 5. Hypotension related to sepsis and pneumonia. The patient had normal left ventricular ejection fraction on echocardiogram. 6. Severe protein calorie malnutrition. 7. Acute over chronic kidney failure, stage 5. The patient has an extremely poor prognosis. I had a good discussion with the patient's son who also holds medical power of supervisor cutting and boning on the patient. I am recommending end of life care with hospice consult to keep the patient comfortable and I agree with Dr. Rayshawn Hart. The patient's son will discuss the situation with his brother and then decide about further treatment. Dr. Rayshawn Hart Thank you for asking me to see the patient. We will follow along with you. MARLEE BARNES MD CM:CONSTR:REPORT OF CONSULTATION 1756 10/15/17 0016 interface
--- NOTE | ~2017-10-12 | PR ---
[place], [place] PROGRESS NOTE NAME: NATO FORD UNIT #: [id number] ROOM: [facility] DOCTOR: ARIS MCDERMOTT MD BIRTHDATE: [birth year] DOS: 10/14/2017 I am covering for Dr. Shin. SUBJECTIVE: Dr. Shin saw the patient yesterday. The patient examined in the Intensive Care Unit. Continues to be hypotensive, heart rates about 110-120 with atrial fibrillation. The patient is severely hypotensive, still on Levophed and Anish-Synephrine. Systolic blood pressure is about low 90s-80s. The patient is getting IV fluids. The patient had an echocardiogram done by Dr. Shin, showed an ejection fraction well preserved with severe pulmonary hypertension. REVIEW OF SYSTEMS: Unable to perform because of the critical nature of the patient. OBJECTIVE: VITAL SIGNS: Right now the pressure is 86/60. He is on max dose of Levophed and Anish-Synephrine now. NECK: Supple, elevated JVD. LUNGS: Diminished breath sounds. HEART: Sounds are irregularly irregular. ABDOMEN: Soft, nontender. EXTREMITIES: No edema. EKG shows sinus tachycardia with complete right bundle branch block, which was done earlier. LABORATORY DATA: Shows white count of 24,000, hemoglobin 8.8, hematocrit 26.7. Sodium 119, BUN 98, creatinine 4.9. IMPRESSION AND PLAN: Acute on chronic renal failure, respiratory failure, probable pneumonia, severe hypotension secondary to septic shock. RECOMMENDATIONS: Continue hemodynamic support. Condition is guarded and critical and we will follow up. [place], [place] PROGRESS NOTE NAME: NATO FORD UNIT #: [id number] ROOM: [facility] DOCTOR: ARIS MCDERMOTT MD BIRTHDATE: [birth year] ARIS MCDERMOTT MD CM:PNTRANS [phone] [id number] ARIS MCDERMOTT MD 10/14/172230 interface
--- NOTE | ~2017-10-12 | PR ---
[place], [place] PROGRESS NOTE NAME: NATO FORD UNIT #: [id number] ROOM: [facility] DOCTOR: LORELEI THURSTON MD,NIDHI BIRTHDATE: [birth year] DOS: 10/14/2017 SUBJECTIVE: The patient continues to remain unconscious on the BiPAP. He has been continued on vasopressor therapy as well. Antibiotics were also continued for the current acute pneumonia. Blood cultures were noted positive for a strep pneumonia, which was isolative on 10/12/2017. The sensitivity was noted with sensitivity to Levaquin, Bactrim, cefotaxime and vancomycin, resistant to erythromycin and penicillin. The patient has not been noted with further improvement in the oral respiratory status and mental status. All the findings of the patient remains unchanged. He remains unconscious. OBJECTIVE: VITAL SIGNS: Normal temperature, respiratory rate 20, heart rate of 107, blood pressure of 86/48 to ____. Pulse oxygen saturation of the patient recorded as 95-97% on 50% oxygen supplementation. HEENT: The patient is continued on BiPAP on. Head was atraumatic. Eyes nonicterus. NECK: Supple. CARDIOVASCULAR: S1, S2 audible. LUNGS: General reduction in breath sounds bilaterally. ABDOMEN: Soft, nontender. EXTREMITIES: No new changes. MUSCULOSKELETAL: No deformities. SKIN: No lesions or rashes. LABORATORY DATA: CBC on today's labs, WBC count 24.5, hemoglobin 8.8, hematocrit 26.7, platelet count 114,000. Urine culture, no bacterial growth. Blood culture from the shows strep pneumonia, which has already been assessed. This morning CMP: BUN 98, creatinine 4.97, glucose 194. Sodium 119, chloride of 79, albumin 1.4. IMPRESSION: 1. Acute strep pneumonia with multiorgan system failure, acute kidney injury, and severe hyponatremia. 2. Severe hypotension with a shock status, septic shock. 3. Change in mental status, multifactorial including secondary to severe sepsis. PLAN OF MANAGEMENT: At this time, the patient would be continued on the current treatment on vasopressor and BiPAP per his advance directives. Overall prognosis of the patient remains very guarded. Discussion could be initiated with the patient's family members about the hospice care as well. Usual care, other supportive therapy, plan of management. Antibiotic adjustment based on the current culture results will be done for this patient with vancomycin. The Zosyn could be discontinued. [place], [place] PROGRESS NOTE NAME: NATO FORD UNIT #: [id number] ROOM: [facility] DOCTOR: NIDHI FERRIS MD BIRTHDATE: [birth year] NIDHI MOSELEY MD CM:PNTRANS [id number] NIDHI THURSTON MD 10/15/17 1529 interface
--- NOTE | ~2017-10-12 | CON ---
[place], [place] REPORT OF CONSULTATION NAME: NATO FORD UNIT #: [id number] ROOM: [facility] DOCTOR: SHANTEL DUARTE MD BIRTHDATE: [birth year] DOS: 10/13/2017 HISTORY OF PRESENT ILLNESS: This is a 77-year-old -[place] man with a history of essential hypertension, severe pulmonary hypertension by an echocardiogram done last month. He has chronic respiratory failure, severe COPD, chronic kidney disease/end-stage renal disease now. He had a pneumothorax last month and had a chest tube placed with improvement. He was admitted to the hospital because he was lethargic and was found to be in septic shock, right-sided pneumonia and some pleural effusion. Detailed history is not available from the patient. The patient's chart was reviewed. Currently, he is on BiPAP and is on Levophed and Anish-Synephrine. The systolic blood pressure in the 90s. He is also getting IV fluids. PHYSICAL EXAMINATION: GENERAL: The patient who is on BiPAP, lethargic, responds to questions vaguely. He is a little pale looking, not diaphoretic. VITAL SIGNS: Temperature is normal. Pulse is 108 beats per minute and regular, blood pressure 96 systolic now and has been much lower than this at times. JVP is just mildly elevated, probably around 6-7 mmHg. EXTREMITIES: He has no edema in the lower extremities. CARDIOVASCULAR: Cardiac auscultation revealed no murmurs because of a lot of noise, but despite BiPAP. Auscultation is rather difficult and auscultation of the lungs revealed a lot of crackles, a lot more in the right side with diminished breath sounds. ABDOMEN: Supple and nontender. Liver is not enlarged. LABORATORY DATA: An ECG showed sinus tachycardia with a complete right bundle branch block. Troponin level is 0.069. It was hard last month. Chest x-ray shows extensive chronic changes with a right-sided pneumonia and some pleural effusions bilaterally. Hemoglobin 8.4, WBC 13.9, BUN is 112, creatinine is 5.68, and CO2 21. Serum albumin 1.5 g/dL. Blood cultures are awaited, but one showed gram-positive cocci in pairs. IMPRESSION: 1. This patient has septic shock probably resulting from pneumonia. 2. Acute on chronic respiratory failure due to COPD complicated by pneumonia. 3. He has moderate anemia. 4. An echocardiogram done today demonstrated an LV ejection fraction of 75%, normal LV cavity size, moderately dilated right ventricle with severe pulmonary hypertension with systolic pressure being around 60-70 mmHg and mild tricuspid regurgitation. IMPRESSION: This patient has severe pulmonary hypertension due to chronic lung disease. LV function is normal and in fact LV is hyperdynamic and may be indicative of septic shock as well. I gather that he is not to be intubated and hemodialysis is being considered. [place], [place] REPORT OF CONSULTATION NAME: NATO FORD UNIT #: [id number] ROOM: [facility] DOCTOR: GERALD ROYAL,SHANTEL BIRTHDATE: [birth year] The patient is probably a comfort care. I do not have much else to add and then what ____ doing at this time. I thank for this consult. SHANTEL DUARTE MD CM:CONSTR:REPORT OF CONSULTATION 1647 10/13/178 interface
--- NOTE | ~2017-10-12 | CON ---
[place], [place] REPORT OF CONSULTATION NAME: NATO FORD UNIT #: [id number] ROOM: [facility] DOCTOR: NIDHI FERRIS MD BIRTHDATE: [birth year] DOS: 10/13/2017 CONSULTATION REQUESTED BY: Dr. Vazquez Hart. REASON FOR CONSULTATION: To assess the patient's current acute respiratory failure. HISTORY OF PRESENT ILLNESS: This is a 77-year-old white male was admitted to the hospital on 10/12/2017. The patient was admitted to the hospital because of symptoms of increased shortness of breath with increased lethargy and decreased responsiveness was noted with progressive increase in hypoxia. The patient also developed significant hypotension. He required vasopressor therapy currently getting, Anish-Synephrine, Levophed for the mild and severe hypotension. The patient's mental status still noted abnormal, not responding to the vocal commands. The BiPAP has been used based on the patient's advanced directive. No intubation was needed. Chest x-ray was described possibility of acute pneumonia. The patient has been currently noted a decreased responsiveness, treated in Intensive Care Unit based on the current advanced directives. Antibiotic was continued. Not been noted any witnessed aspiration or the pneumonia. REVIEW OF SYSTEMS: Could not be performed because of inability to give me any history. PREVIOUS HISTORY: From recent consultation, which was done on the September 11, 2017 with a past history for this patient, surgical history, social history, and family history remains unchanged. The patient was treated at that time in the hospital and managed for pneumothorax. The patient noted with attention with sepsis, hypotension. The pneumothorax was managed with the chest tube insertion, which was subsequently removed after the resolution of the pneumothorax. Overall, condition improved. The patient was discharged home. CURRENT MEDICATIONS: Administered noted use of ferrous sulfate, norepinephrine, heparin for DVT prophylaxis, azathioprine, atorvastatin, Anish-Synephrine, DuoNeb, vancomycin, Zosyn and other p.r.n. medications administration. DRUG ALLERGIES: The patient noted no known drug allergies. PHYSICAL EXAMINATION: GENERAL: A 77-year-old white male who has been currently noted on the BiPAP unresponsive. VITAL SIGNS: Height of 6 feet, weight of 122, BMI only 16.6. VITAL SIGNS: For the patient, which have recorded shows temperature noted as normal temperature to 96.4 degree Fahrenheit. The respiratory rate of recorded as 18-24. Heart rate of 107-98. Blood pressure of 69/34-104/57. The intake and output: Intake was noted as 9615, output 240 mL. The patient noted Valderrama catheter that was inserted yesterday. Pulse ox saturation on 50% oxygen, BiPAP was 85-99% saturation. HEENT: Loss of muscle mass. Head was atraumatic. Eyes nonicterus. NECK: Supple. [place], [place] REPORT OF CONSULTATION NAME: NATO FORD UNIT #: [id number] ROOM: [facility] DOCTOR: LORELEI THURSTON MD,[facility] BIRTHDATE: [birth year] CARDIOVASCULAR: S1, S2 is audible. LUNGS: The patient was noted with moderate reduction in the breath sounds in the lungs bilaterally. Decreased air entry noted in the lungs bilaterally. ABDOMEN: Soft, flat, nontender. EXTREMITIES: Loss of muscle mass. VISIBLE SKIN: No lesions or rashes. MUSCULOSKELETAL: Without any acute deformities. CENTRAL NERVOUS SYSTEM: Change in mental status. LABORATORY DATA: Arterial blood gas, which was done yesterday, pH of 7.11, pCO2 of 60, pO2 of 31, 100% nonrebreather mask. Repeat arterial blood gas, pH of 7.19, pCO2 of 47, pO2 81. The first arterial blood gas was considered a venous gas. CMP of the patient that was done on 10/13/2017, BUN of 112, creatinine 5.68, glucose 326. Sodium 125. Uncorrected calcium 6.7. The albumin was noted 1.5. CBC of this morning, WBC count 13.9, hemoglobin 8.4, hematocrit 27.2, platelet count 180,000. Lactic acid noted 2.0. The PT, PTT that were done yesterday on admission was normal. The CBC yesterday on admission, WBC count of 9.7, hemoglobin 10.4, hematocrit 33.3, platelet count of 218,000. The CMP, BUN 130, creatinine 6.80. Chest x-ray noted with chronic changes. We will order pleural calcification noted right side tracheal deviation, right as previously seen. Possible infiltration in the right lower lobe cannot be excluded. Left side noted hyperinflation of the lung. IMPRESSION: 1. The patient has been currently admitted to the hospital noted with severe hypotension with progressive severe acute kidney injury resulting in ____. Possibility of acute pneumonia superimposed could not be completely excluded. 2. Anemia was also noted without any evidence of chronic obstructive pulmonary disease. 3. Change in mental status secondary to current hypotension, which has noted severe and severe metabolic acidosis. 4. Past history of pneumothorax previously as well. PLAN OF MANAGEMENT: Agree with the use of broad spectrum intravenous antibiotic because of recent hospitalization in August could result in colonization gram-positive, gram-negative organism to be treated. Continue to treat with vasopressor therapy. For the respiratory status management at this time, no additional change of treatment needs to be done. Based on the current code status, only changes to be treated conservative measures including the BiPAP per his advanced directives. The patient has been currently assessed by the Nephrology Service for ____ severe metabolic acidosis resulting from the acute kidney injury. The overall prognosis appears to be quite guarded at this time. Current therapy, plan of management with all the comfort measures, palliative care to be continued. Usual care. Usual treatment changes will be done on the progression of the illness. Continuation of other therapy, plan of management as well. Usual treatment. Thanks for allowing me to participate in the care of this patient. [place], [place] REPORT OF CONSULTATION NAME: NATO FORD UNIT #: [id number] ROOM: [facility] DOCTOR: NIDHI FERRIS MD BIRTHDATE: [birth year] NIDHI MOSELEY MD CM:CONSTR:REPORT OF CONSULTATION 1602 10/14/17 0709 interface
--- NOTE | ~2017-10-12 | PR ---
[place], [place] PROGRESS NOTE NAME: NATO FORD UNIT #: [id number] ROOM: [facility] DOCTOR: LORELEI THURSTON MD,NIDHI BIRTHDATE: [birth year] DOS: 10/15/2017 SUBJECTIVE: The patient has been doing poorly on 100% oxygen supplementation with BiPAP. Pulse oxygen saturation recorded as 89%-90% at the bedside. The patient remains completely unconscious. Not been noted with any major distress. OBJECTIVE: VITAL SIGNS: Blood pressure, the patient recorded it as 102/69. The temperature 96, respiratory rate 14, heart rate 108. HEENT: No new change. CARDIOVASCULAR SYSTEM: S1, S2 audible. LUNGS: General reduction in breath sounds bilaterally. ABDOMEN: Soft, nontender. Bowel sounds present. EXTREMITIES: Without any acute edema. IMPRESSION: Persistent severe hypoxic respiratory failure was noted for this patient with acute pneumonia for the patient with strep pneumonia, septic shock and multiorgan system failure. PLAN OF MANAGEMENT: The patient has been doing poorly at this time. Hospice services assessment was advised to the family members, the decision has not been made by them. From a pulmonary standpoint, continue current vasopressor, BiPAP, and other treatment therapy, plan of management. The patient's code status are noted. No intubation. NIDHI MOSELEY MD CM:PNTRANS [id number] NIDHI THURSTON MD 10/16/17 0247 interface
[~2017-10-12 10:14] MED LIST changes: +ADVAIR 250/501 EA PO; -AMLODIPINE5 MG PO; +DOXYCYCLINE100 M3 PO; +FEROSUL325 MG PO; +NORVASC5 MG PO; +ZESTORETIC 10-1 EACH PO
[2017-10-12 10:39] LABS: HEMATOCRIT 33.3 % (42.0-52.0); HEMOGLOBIN 10.4 g/dl (14.0-18.0); MEAN CELL VOLUME 101.2 fl (80.0-94.0); MEAN CORPUSCULAR HGB 31.6 pg (27.0-31.0); MEAN CORPUSCULAR HGB CONC 31.2 g/dl (33.0-37.0); MEAN PLATELET VOLUME 11.1 fl (9.6-12.3); NUCLEATED RED BLOOD CELL 0.1 10*3/uL (0.0-0.0); NUCLEATED RED BLOOD CELL 1.1 % (0.0-0.0); PLATELET COUNT AUTOMATED 218 10*3/uL (130-400); RED BLOOD COUNT 3.29 10*6/uL (4.50-5.90); RED CELL DISTRI WIDTH 17.1 % (0-14.5); WHITE BLOOD COUNT 9.7 10*3/uL (4.8-10.8)
[2017-10-12 10:51] LABS: ACT PARTIAL THROMBO TIME 29.4 SECONDS (20.8-31.5); INTERNATIONAL NORM RATIO 1.1 (2.0-3.5)
[2017-10-12 10:54] LABS: ABG HCO3 18.1 mmol/l (22-26); ABG O2 SATURATION 98.2 % (95-97); ARTERIAL BLOOD GAS PCO2 38.1 mmHg (35-45); ARTERIAL BLOOD GAS PH 7.3 (7.35-7.45)
[2017-10-12 10:56] LABS: ALBUMIN 2.2 gm/dl (3.1-4.5); CREATININE 6.8 mg/dL (0.70-1.30); POTASSIUM 5.7 mmol/L (3.5-5.1); TOTAL PROTEIN 7.3 gm/dL (6.4-8.2)
[2017-10-12 10:58] LABS: TOTAL CELLS COUNTED 100 #CELLS
[2017-10-12 10:59] LABS: ABG BASE EXCESS -7.1 mmol/L (-2.0-2.0)
[2017-10-12 10:59] LABS: DOHLE BODIES FEW; PLATELET SUFFICIENCY NORMAL (NORMAL); POLYCHROMASIA SLIGHT; TROPONIN I 0.082 ng/ml (<0.045)
[2017-10-12] MEDS ORDERED: ARICEPT5 M1 PO (13:17)
[2017-10-12] MEDS ORDERED: LATANOPROST2.5 ML INTRAOC (13:19)
[2017-10-12 14:20] LABS: BILIRUBIN NEGATIVE (NEGATIVE); BLOOD 3+ (NEGATIVE); CLARITY SL CLOUDY (CLEAR); COLOR YELLOW (YELLOW); GLUCOSE NEGATIVE (NEGATIVE); KETONE TRACE (NEGATIVE); LEUKO ESTERASE NEGATIVE (NEGATIVE); NITRITE NEGATIVE (NEGATIVE); PH 5.5 (5.0-9.0); SPECIFIC GRAVITY >= 1.030 (1.005-1.030); UROBILINOGEN 0.2 E.U./dl (0.2-1.0)
[2017-10-12 14:37] LABS: BACTERIA TRACE
[2017-10-12 19:22] LABS: ABG HCO3 19.2 mmol/l (22-26); ABG O2 SATURATION 41.5 % (95-97); ARTERIAL BLOOD GAS PCO2 60.8 mmHg (35-45)
[2017-10-12 19:27] LABS: ABG BASE EXCESS -10.1 mmol/L (-2.0-2.0)
[2017-10-12 19:28] LABS: ARTERIAL BLOOD GAS PH 7.117 (7.35-7.45); ARTERIAL BLOOD GAS PO2 31.7 mmHg (80-90)
[2017-10-12 19:43] LABS: ABG BASE EXCESS -9.9 mmol/L (-2.0-2.0); ABG HCO3 17.7 mmol/l (22-26); ABG O2 SATURATION 94.6 % (95-97); ARTERIAL BLOOD GAS PCO2 47.5 mmHg (35-45); ARTERIAL BLOOD GAS PO2 81.9 mmHg (80-90)
[2017-10-12 19:44] LABS: ARTERIAL BLOOD GAS PH 7.194 (7.35-7.45)
[2017-10-13] VITALS (95 sets, daily range): BP systolic 69–137; BP diastolic 34–825
[2017-10-13 06:30] LABS: HEMATOCRIT 27.3 % (42.0-52.0); HEMOGLOBIN 8.4 g/dl (14.0-18.0); MEAN CELL VOLUME 101.5 fl (80.0-94.0); MEAN CORPUSCULAR HGB 31.2 pg (27.0-31.0); MEAN CORPUSCULAR HGB CONC 30.8 g/dl (33.0-37.0); MEAN PLATELET VOLUME 11.2 fl (9.6-12.3); NUCLEATED RED BLOOD CELL 0.2 10*3/uL (0.0-0.0); NUCLEATED RED BLOOD CELL 1.7 % (0.0-0.0); PLATELET COUNT AUTOMATED 180 10*3/uL (130-400); RED BLOOD COUNT 2.69 10*6/uL (4.50-5.90); RED CELL DISTRI WIDTH 17.5 % (0-14.5); WHITE BLOOD COUNT 13.9 10*3/uL (4.8-10.8)
[2017-10-13 06:45] LABS: ALBUMIN 1.5 gm/dl (3.1-4.5); CREATININE 5.68 mg/dL (0.70-1.30); PHOSPHOROUS 6.1 mg/dL (2.5-4.9); POTASSIUM 4.9 mmol/L (3.5-5.1); TOTAL PROTEIN 5.5 gm/dL (6.4-8.2)
[2017-10-13 07:21] LABS: BURR CELLS MODERATE; TOTAL CELLS COUNTED 100 #CELLS; TOXIC GRANULATION SLIGHT
[2017-10-13 07:22] LABS: HOWELL-JOLLY BODIES FEW; PLATELET SUFFICIENCY NORMAL (NORMAL); SCHISTOCYTES FEW
[2017-10-14] VITALS (91 sets, daily range): BP systolic 67–172; BP diastolic 39–102
[2017-10-14 06:08] LABS: ALBUMIN 1.4 gm/dl (3.1-4.5); CREATININE 4.97 mg/dL (0.70-1.30); PHOSPHOROUS 5.2 mg/dL (2.5-4.9); POTASSIUM 4.2 mmol/L (3.5-5.1); TOTAL PROTEIN 5.2 gm/dL (6.4-8.2)
[2017-10-14 06:25] LABS: HEMATOCRIT 26.7 % (42.0-52.0); HEMOGLOBIN 8.8 g/dl (14.0-18.0); MEAN CORPUSCULAR HGB 31.8 pg (27.0-31.0); MEAN PLATELET VOLUME 12.2 fl (9.6-12.3); NUCLEATED RED BLOOD CELL 0.1 10*3/uL (0.0-0.0); NUCLEATED RED BLOOD CELL 0.4 % (0.0-0.0); RED BLOOD COUNT 2.77 10*6/uL (4.50-5.90); RED CELL DISTRI WIDTH 17.3 % (0-14.5); WHITE BLOOD COUNT 24.5 10*3/uL (4.8-10.8)
[2017-10-14 06:29] LABS: MEAN CELL VOLUME 96.4 fl (80.0-94.0); PLATELET COUNT AUTOMATED 114 10*3/uL (130-400)
[2017-10-14 07:00] LABS: BURR CELLS MODERATE; TOTAL CELLS COUNTED 100 #CELLS
[2017-10-14 07:01] LABS: PLATELET SUFFICIENCY LOW (NORMAL); POLYCHROMASIA SLIGHT; SCHISTOCYTES FEW
[2017-10-15] VITALS (58 sets, daily range): BP systolic 72–118; BP diastolic 38–81
[2017-10-15 05:45] LABS: ALBUMIN 1.4 gm/dl (3.1-4.5); CREATININE 4.27 mg/dL (0.70-1.30); POTASSIUM 3.8 mmol/L (3.5-5.1)
[2017-10-15 05:54] LABS: HEMATOCRIT 27.1 % (42.0-52.0); HEMOGLOBIN 8.6 g/dl (14.0-18.0); MEAN CELL VOLUME 97.5 fl (80.0-94.0); MEAN CORPUSCULAR HGB 30.9 pg (27.0-31.0); MEAN CORPUSCULAR HGB CONC 31.7 g/dl (33.0-37.0); MEAN PLATELET VOLUME 12.5 fl (9.6-12.3); NUCLEATED RED BLOOD CELL 0.1 % (0.0-0.0); PLATELET COUNT AUTOMATED 88 10*3/uL (130-400); RED BLOOD COUNT 2.78 10*6/uL (4.50-5.90); RED CELL DISTRI WIDTH 17.3 % (0-14.5)
[2017-10-15 06:58] LABS: TOTAL CELLS COUNTED 100 #CELLS; TOXIC GRANULATION MODERATE
[2017-10-15 06:59] LABS: BURR CELLS FEW; VACUOLATION OF NEUTROPHILS SLIGHT
[2017-10-15 07:00] LABS: PLATELET SUFFICIENCY LOW (NORMAL)
== END 2017-10-15 14:25 | disposition hospice, home (50) | DRG 871 ==
LOC: ED 10:14 → EDHOLD 11:15 → ICCU 11:15
PROVIDERS: Family Medicine; Internal Medicine; Student in an Organized Health Care Education/Training Program
PROC: 5A09357 Assistance with Respiratory Ventilation, Less than 24 Consecutive Hours, Continuous Positive Airway Pressure (ICD-10-PCS; principal; 2017-10-13)
PROC: B548ZZA Ultrasonography of Superior Vena Cava, Guidance (ICD-10-PCS; 2017-10-14)
PROC: 02HV33Z Insertion of Infusion Device into Superior Vena Cava, Percutaneous Approach (ICD-10-PCS; 2017-10-14)
PROC: 5A09357 Assistance with Respiratory Ventilation, Less than 24 Consecutive Hours, Continuous Positive Airway Pressure (ICD-10-PCS; 2017-10-15)
DX: A41.9 Sepsis, unspecified organism (principal); R65.21 Severe sepsis with septic shock; I21.A1 Myocardial infarction type 2; N17.1 Acute kidney failure with acute cortical necrosis; J96.21 Acute and chronic respiratory failure with hypoxia; E43 Unspecified severe protein-calorie malnutrition; E87.2 Acidosis; E83.39 Other disorders of phosphorus metabolism; I27.20 Pulmonary hypertension, unspecified; J13 Pneumonia due to Streptococcus pneumoniae; J96.22 Acute and chronic respiratory failure with hypercapnia; E87.1 Hypo-osmolality and hyponatremia; J44.0 Chronic obstructive pulmonary disease with (acute) lower respiratory infection; Z68.1 Body mass index [BMI] 19.9 or less, adult; E87.5 Hyperkalemia; K57.90 Diverticulosis of intestine, part unspecified, without perforation or abscess without bleeding; N18.3 Chronic kidney disease, stage 3 (moderate); T68.XXXA Hypothermia, initial encounter; D53.9 Nutritional anemia, unspecified; R73.9 Hyperglycemia, unspecified; E83.41 Hypermagnesemia; R74.0 Nonspecific elevation of levels of transaminase and lactic acid dehydrogenase [LDH]; I48.91 Unspecified atrial fibrillation; R31.29 Other microscopic hematuria; I12.9 Hypertensive chronic kidney disease with stage 1 through stage 4 chronic kidney disease, or unspecified chronic kidney disease; Z66 Do not resuscitate; Z51.5 Encounter for palliative care; Z87.891 Personal history of nicotine dependence; Z87.01 Personal history of pneumonia (recurrent); Z85.46 Personal history of malignant neoplasm of prostate; Z85.828 Personal history of other malignant neoplasm of skin; Z83.3 Family history of diabetes mellitus; Z80.9 Family history of malignant neoplasm, unspecified; Z79.899 Other long term (current) drug therapy

== ENCOUNTER 2017-10-15 14:41 | Inpatient (IN) | payer OTHER ==
[~2017-10-15] VITALS: Ht 182.9 cm; Wt 66.3 kg
[~2017-10-15 14:41] MED LIST changes: +ARICEPT5 M1 PO; +LATANOPROST2.5 ML INTRAOC
[2017-10-15 14:45] VITALS: BP 88/52
[2017-10-15 16:00] VITALS: BP 50/31
[2017-10-15 20:00] VITALS: BP 57/24
[2017-10-16] VITALS: BP 56/33
[2017-10-16 01:08] VITALS: BP 47/32
[2017-10-16 04:00] VITALS: BP 58/28
[2017-10-16 08:00] VITALS: BP 58/31
[2017-10-16 12:00] VITALS: BP 45/25
== END 2017-10-16 16:04 | disposition expired | DRG 871 ==
LOC: ICCU 14:41 → 4E 14:41
PROC: 5A09357 Assistance with Respiratory Ventilation, Less than 24 Consecutive Hours, Continuous Positive Airway Pressure (ICD-10-PCS; principal; 2017-10-15)
DX: A41.9 Sepsis, unspecified organism (principal); R65.21 Severe sepsis with septic shock; I21.A1 Myocardial infarction type 2; J96.21 Acute and chronic respiratory failure with hypoxia; N17.0 Acute kidney failure with tubular necrosis; E43 Unspecified severe protein-calorie malnutrition; J18.9 Pneumonia, unspecified organism; E87.2 Acidosis; I27.20 Pulmonary hypertension, unspecified; E83.39 Other disorders of phosphorus metabolism; E87.5 Hyperkalemia; J96.22 Acute and chronic respiratory failure with hypercapnia; J44.0 Chronic obstructive pulmonary disease with (acute) lower respiratory infection; E87.1 Hypo-osmolality and hyponatremia; Z68.1 Body mass index [BMI] 19.9 or less, adult; D53.9 Nutritional anemia, unspecified; R73.9 Hyperglycemia, unspecified; E83.41 Hypermagnesemia; Z51.5 Encounter for palliative care; N18.3 Chronic kidney disease, stage 3 (moderate); R74.0 Nonspecific elevation of levels of transaminase and lactic acid dehydrogenase [LDH]; R31.29 Other microscopic hematuria; I12.9 Hypertensive chronic kidney disease with stage 1 through stage 4 chronic kidney disease, or unspecified chronic kidney disease; K57.90 Diverticulosis of intestine, part unspecified, without perforation or abscess without bleeding; Z66 Do not resuscitate; Z85.46 Personal history of malignant neoplasm of prostate; Z85.828 Personal history of other malignant neoplasm of skin; Z79.899 Other long term (current) drug therapy